=== PATIENT | female | born 1960 | race Caucasian/White ===

== ENCOUNTER 2021-12-15 01:51 | Day surgery (SDC) | payer BC, SELFPAY ==
[2021-12-01 11:33] VITALS: BMI 34.4
--- NOTE | 2021-12-14 13:32 | PM.HPGS ---
History of Present Illness History of Present Illness Consent: Risks, benefits, and alternatives have been discussed and questions answered. Patient agrees to proceed with procedure. Chief complaint: neoplasm screening Narrative: Rebekah Ly is a 61 year old female Referred for colon cancer screening. She has had a prior Cologuard test in the past which was negative. Review of Systems Review of Systems: All systems reviewed & are unremarkable except as noted in HPI and below PMFSH Social History Social History Alcohol intake: current Alcohol use details: 1 per month Living arrangements: alone Spiritual care concerns: No Meds Home Medications and Allergies Home Medications Medication Instructions Recorded Confirmed Type cyclobenzaprine 10 mg tablet 10 mg PO TID PRN Muscle Spasm 12/01/21 12/01/21 History gabapentin 300 mg capsule 300 mg PO BID 12/01/21 12/01/21 History metformin 500 mg tablet,extended 1,500 mg PO AC 12/01/21 12/01/21 History release 24 hr valsartan 160 mg tablet 160 mg PO DAILY 12/01/21 12/01/21 History Allergies Allergy/AdvReac Type Severity Reaction Status Date / Time erythromycin base Allergy Hives Verified 12/15/21 07:09 [From Ilosone] Exam Const: General: alert Orientation/consciousness: patient oriented x3 Resp: Auscultation: clear to auscultation bilaterally Cardio: Rhythm: regular rhythm GI: GI Palp: Yes Soft to palpation and No Tenderness to palpation present (GI) Neuro: General: patient oriented x3 Assessment and Plan Assessment and plan (1) Colon cancer screening: Code(s): Z12.11 - Encounter for screening for malignant neoplasm of colon Status: Acute Assessment and Plan: Colonoscopy with possible biopsy or polypectomy or cautery or injection of substances.
[2021-12-15 07:11] VITALS: BP 150/80; PULSE 105; RESP 18; TEMP 37.2; O2SAT 100
[2021-12-15] MEDS: LACTATED RINGERS 1,000 ML 150 ML IV CONT (07:23)
[2021-12-15 07:29] LABS: Glucose Point of Care 115 mg/dl (65-105)
--- NOTE | 2021-12-15 07:45 | P.PNAN_ITS ---
Anes - Initial Pre Proc Eval Procedure: Operation Date: 12/15/21 08:00 Proposed Procedures p Screening Colonoscopy - Darien Nicolas MD Date/Time: 12/15/21 07:45 Surgeon: Darien Nicolas MD Pre Op Diagnosis: neoplasm screening Patient Data Age: 61 Gender: F Height: 1.65 m Weight: 92.5 kg Last Vital Signs Temp 98.9 F 12/15/21 07:11 Pulse 105 H 12/15/21 07:11 Resp 18 12/15/21 07:11 BP 150/80 H 12/15/21 07:11 Pulse Ox 100 12/15/21 07:11 O2 Del Method Room Air 12/15/21 07:11 Allergies Allergy/AdvReac Type Severity Reaction Status Date / Time erythromycin base Allergy Hives Verified 12/15/21 07:09 [From Ilosone] Home Medications Medication Instructions Recorded Confirmed Type cyclobenzaprine 10 mg tablet 10 mg PO TID PRN Muscle Spasm 12/01/21 12/01/21 History gabapentin 300 mg capsule 300 mg PO BID 12/01/21 12/01/21 History metformin 500 mg tablet,extended 1,500 mg PO AC 12/01/21 12/01/21 History release 24 hr valsartan 160 mg tablet 160 mg PO DAILY 12/01/21 12/01/21 History Laboratory Tests 12/15/21 07:25 POC Capillary Glucose 115 mg/dl H mg/dl (65-105) Patient hx anesthesia problems: none Family hx anesthesia problems: none Results Review: All pre-operative results and documents have been reviewed as part of the pre- operative evaluation. [facility] Social History Social History Alcohol intake: current Alcohol use details: 1 per month Living arrangements: alone Spiritual care concerns: No Anes - Eval Final PreProcedure Day of Procedure 12/15/21 07:45 Patient weight: obese Heart: regular rate and rhythm Lungs: clear to auscultation Airway: Mallampati scale class II Neurological: alert and oriented Last oral intake: >/= 8 hours ASA classification: III Emergent: no Anesthetic plan: proceed Anesthesia type and monitoring: general GIVS and standard monitoring Results Review: All pre-operative results and documents have been reviewed as part of the pre- operative evaluation. Informed Consent: The patient's anesthetic plan and its attendant risks and benefits were discussed with the patient/family/POA. Questions were solicited and answers provided to the satisfaction of the patient/family/POA.
[2021-12-15 08:22] VITALS: BP 130/67; PULSE 101; RESP 22; O2SAT 100
[2021-12-15 08:32] VITALS: BP 117/89; PULSE 83; RESP 21; O2SAT 98
[2021-12-15 08:42] VITALS: BP 111/85; PULSE 81; RESP 21; O2SAT 97
== END 2021-12-15 08:50 | disposition home or self-care (01) ==
PROVIDERS: Visit Provider Internal Medicine Gastroenterology
PROC: 0DJD8ZZ Inspection of Lower Intestinal Tract, Via Natural or Artificial Opening Endoscopic (ICD-10-PCS; CPT 45378; principal; 2021-12-15 08:00)
DX: Z12.11 Encounter for screening for malignant neoplasm of colon (principal); D12.0 Benign neoplasm of cecum; D12.4 Benign neoplasm of descending colon; Z79.899 Other long term (current) drug therapy
CPT/HCPCS: 45385; 45380; 82948; 88305; J2704; J7120